=== PATIENT | female | born 1965 | race Caucasian/White ===

== ENCOUNTER 2018-08-17 06:51 | Emergency (ER) | payer BC ==
[2018-08-17 07:01] VITALS: RESP 16; O2SAT 97
--- NOTE | 2018-08-17 07:27 | C.PDOC ---
History Of Present Illness 53 y/o female who presents to the ED for medical evaluation of abdominal pain x 3 days with associated chills, nausea, vomiting x 1 (yesterday), poor appetite, rhinorrhea, and headache. She describes the pain as achy and limited to the right side. She denies any aggravating factors. She denies fever, dizziness, diarrhea, chest pain. She admits to sick contact at home (Son has flu). LMP was in December (menopausal) and last BM was on Friday. She denies any use of meds. <Ceci Naranjo - Last Filed: 08/17/18 15:24> <Maegan Griggs - Last Filed: 08/17/18 07:21> History Per: Patient History/Exam Limitations: no limitations Onset/Duration Of Symptoms: Days (3), Gradual Current Symptoms Are (Timing): Still Present Severity: Mild Pain Scale Rating Of: 3 <Ceci Naranjo - Last Filed: 08/17/18 15:24> Time Seen by Provider: 08/17/18 07:21 Chief Complaint (Nursing): Abdominal Pain Past Medical History Vital Signs: Last Vital Signs Temp 98.2 F 08/17/18 06:57 Pulse 93 H 08/17/18 06:57 Resp 16 08/17/18 06:57 BP 124/82 08/17/18 06:57 Pulse Ox 97 08/17/18 06:57 - Medical History PMH: Gastritis Family History: States: Unknown Family Hx - Social History Hx Alcohol Use: No Hx Substance Use: No - Immunization History Hx Tetanus Toxoid Vaccination: No Hx Influenza Vaccination: No Hx Pneumococcal Vaccination: No <Maegan Griggs - Last Filed: 08/17/18 07:21> Reviewed: Historical Data, Nursing Documentation, Vital Signs Vital Signs: Last Vital Signs Temp 98.2 F 08/17/18 06:57 Pulse 93 H 08/17/18 06:57 Resp 16 08/17/18 06:57 BP 124/82 08/17/18 06:57 Pulse Ox 97 08/17/18 07:27 - Social History Hx Tobacco Use: No <Ceci Naranjo - Last Filed: 08/17/18 15:24> Review Of Systems Constitutional: Positive for: Chills. Negative for: Fever, Sweats, Weakness ENT: Positive for: Nose Discharge (clear rhinorrhea). Negative for: Nose Congestion, Throat Pain Cardiovascular: Negative for: Chest Pain Respiratory: Negative for: Cough Gastrointestinal: Positive for: Nausea, Vomiting, Abdominal Pain. Negative for: Diarrhea, Constipation Musculoskeletal: Negative for: Neck Pain Skin: Negative for: Rash Neurological: Positive for: Headache. Negative for: Dizziness <Ceci Naranjo - Last Filed: 08/17/18 15:24> Physical Exam - Physical Exam Appears: Well, Non-toxic, No Acute Distress Skin: Normal Color, Warm, Dry Head: Atraumatic, Normacephalic, No Tenderness Eye(s): bilateral: Normal Inspection, PERRL Ear(s): Bilateral: Normal (TM intact) Nose: Flaring, No Discharge Throat: No Erythema Neck: Normal ROM, Supple Lymphatic: No Adenopathy Chest: Symmetrical Cardiovascular: Rhythm Regular Respiratory: Normal Breath Sounds, No Wheezing Gastrointestinal/Abdominal: Bowel Sounds, Soft, Tenderness (mild; RLQ), No Guarding, No Rebound Back: No CVA Tenderness Neurological/Psych: Oriented x3, Normal Speech, Normal Cognition, Normal Sensa tion <Ceci Naranjo - Last Filed: 08/17/18 15:24> ED Course And Treatment O2 Sat by Pulse Oximetry: 97 <Maegan Griggs - Last Filed: 08/17/18 07:21> - Laboratory Results Result Diagrams: 08/17/18 07:57 08/17/18 07:57 - Other Rad abdominal U/S X-Ray: Viewed By Me, Read By Radiologist Interpretation: Accession No. : [id number]. Patient Name / ID : PUJA ANDERS / [id number]. Exam Date : 08/17/2018 12:21:06 ( Approved ). Study Comment : Sex / Age : F / 53Y. Creator : Celena Mead. Dictator : Latrice Long MD. Oncology Patient Navigator : Dancing Master : Latrice Long MD. Approver2 : Report Date : 08/17/2018 12:40:48. My Comment : . HISTORY: RLQ pain r/o ovarian cyst vs appendicitis. COMPARISON: None available. TECHNIQUE: Sonographic evaluation of the abdomen. FINDINGS: LIVER: Measures 15.4 cm in sagittal dimension. Echogenic liver may be seen in setting of hepatic pa renchymal disease or fatty infiltration. No focal hepatic mass identified. The main portal vein appears patent with normal directional flow. No intrahepatic bile duct dilatation. GALLBLADDER: No gallstones. No gallbladder wall thickening. Negative sonographic Ayoub's sign as assessed by the steam distribution supervisor. COMMON BILE DUCT: Measures 3 mm. PANCREAS: Not well visualized. RIGHT KIDNEY: Measures 10.7 x 5.3 x 4.1 cm. No obstructing calculus or hydronephrosis identified. LEFT KIDNEY: Measures 11.2 x 4.9 x 4.9 cm. No obstructing calculus or hydronephrosis identified. SPLEEN: Measures approximately 10.2 cm. AORTA: Limited views appear unremarkable. IVC: Limited views appear unremarkable. OTHER FINDINGS: None. IMPRESSION: Echogenic liver may be seen in setting of hepatic parenchymal disease or fatty infiltration. pelvic U/S X-Ray: Viewed By Me, Read By Radiologist Interpretation: Accession No. : [id number]. Patient Name / ID : PUJA ANDERS / [id number]. Exam Date : 08/17/2018 12:32:14 ( Approved ). Study Comment : Sex / Age : F / 53Y. Creator : Celena Mead. Dictator : Geoff Quiroz MD. Oncology Patient Navigator : Dancing Master : Geoff Quiroz MD. Approver2 : Report Date : 08/17/2018 13:45:21. My Comment : . Date of service: 08/17/2018. HISTORY: RLQ pain ? ovarian cyst. COMPARISON: None available. TECHNIQUE: Transabdominal and transvaginal. FINDINGS: UTERUS: Measures 8.4 x 4.6 x 5.7 cm. Normal in size and appearance. No fibroid or other mass lesion seen. ENDOMETRIUM: Measures 5 mm in diameter. Unremarkable. CERVIX: No cervical abnormality identified. RIGHT OVARY: Measures 3.6 x 2.1 x 3.3 cm. No solid mass. Normal flow. Two simple cysts, 2.1 x 1.8 x 2.0 cm and 2.6 x 2.1 x 2.1 cm. The patient is likely perimenopausal and these are likely physiologic cysts.. LEFT OVARY: Measures 2.2 x 1.7 x 1.9 cm. No solid mass. Normal flow. FREE FLUID: No significant free fluid noted. OTHER FINDINGS: None. IMPRESSION: Two simple right ovarian cysts. Otherwise unremarkable examination. <Ceci Naranjo - Last Filed: 08/17/18 15:24> Medical Decision Making Medical Decision Making: A/P: Ovarian cysts (Right) - Meds given- Tylenol, Motrin, Pepcid, and Zofran (tolerated well; symptoms improved - Negative for flu - Repeat UA -negative - Labs reviewed and Discussed with Patient - follow up with PCP, Dr. Love, and local OBGYN - Motrin 600mg prn pain - Patient verbalized understanding <Ceci Naranjo - Last Filed: 08/17/18 15:24> Disposition <Maegan Griggs - Last Filed: 08/17/18 07:21> Counseled Patient/Family Regarding: Studies Performed, Diagnosis, Need For Followup - Disposition Disposition Time: 14:57 <Ceci Naranjo - Last Filed: 08/17/18 15:24> - Disposition Referrals: Osman Love DO [Staff Provider] - Disposition: HOME/ ROUTINE Condition: IMPROVED Additional Instructions: MARTITA LUO, thank you for letting us take care of you today. Your provider was Maegan Griggs MD/Ceci Naranjo PA-C and you were treated for ABD PAIN/DIZZINESS. The emergency medical care you received today was directed at your acute symptoms. If you were prescribed any medication, please fill it and take as directed. It may take several days for your symptoms to resolve. Return to the Emergency Department if your symptoms worsen, do not improve, or if you have any other problems. Please contact your doctor or call one of the physicians/clinics you have been referred to that are listed on the Patient Visit Information form that is included in your discharge packet. Bring any paperwork you were given at discharge with you along with any medications you are taking to your follow up visit. Our treatment cannot replace ongoing medical care by a primary care provider outside of the emergency department. Thank you for allowing the [facility] team to be part of your care today. Prescriptions: Ibuprofen [Motrin] 600 mg PO TID PRN #30 tab PRN Reason: Pain, Moderate (4-7) Instructions: Ovarian Cyst (DC) Forms: [email or web address] (Armenian), Work Excuse - Clinical Impression Clinical Impression: Ovarian cyst - PA / PATTERN STORAGE CLERK / Resident Statement MD/DO has reviewed & agrees with the documentation as recorded. <Ceci Naranjo - Last Filed: 08/17/18 15:24>
[2018-08-17] MEDS ORDERED: Sodium Chloride 0.9% 500 ML IV ONE (07:44)
[2018-08-17 08:08] LABS: BASO % 0.7 % (0.0-2.0); EOS % 0.3 % (0.0-4.0); HEMOGLOBIN 15.7 g/dL (11.0-16.0); LYMPH # 1.6 K/uL (1.0-4.3); LYMPH % 33.3 % (20.0-40.0); MEAN CELL VOLUME 90.5 fL (81.0-99.0); MEAN CORPUSCULAR HEMOGLOBIN 29.7 pg (27.0-31.0); MEAN CORPUSCULAR HGB CONC 32.8 g/dL (33.0-37.0); MEAN PLATELET VOLUME 11.8 fL (7.2-11.7); MONO # 0.7 K/uL (0.0-0.8); NEUT # 2.4 K/uL (1.8-7.0); NEUT % 50.7 % (50.0-75.0); NRBC % 0.1 % (0.0-2.0); RBC 5.29 Mil/uL (3.80-5.20); RED CELL DISTRIBUTION WIDTH 13.9 % (11.5-14.5); WHITE BLOOD COUNT 4.7 K/uL (4.8-10.8)
[2018-08-17 08:22] LABS: ALB/GLOB RATIO 1.3 (1.0-2.1); ALBUMIN 4.9 g/dL (3.5-5.0); ALT/SGPT 40 U/L (9-52); AST/SGOT 48 U/L (14-36); BLOOD UREA NITROGEN 14 mg/dL (7-17); CALCIUM 9.5 mg/dl (8.6-10.4); GFR NON-AFRICAN AMERICAN > 60; LIPASE 106 U/L (23-300)
[2018-08-17] MEDS ORDERED: Sodium Chloride 0.9% 1,000 ML ONE (08:31)
[2018-08-17 08:55] LABS: SQUAMOUS EPITHIAL 19 /hpf (0-5); URINE AMORPHOUS SEDIMENT RARE /ul (<OCC); URINE BACTERIA MANY (<OCC); URINE BILIRUBIN NEGATIVE (NEGATIVE); URINE BLOOD 1+ (NEGATIVE); URINE CLARITY Hazy (Clear); URINE COLOR Amber (YELLOW); URINE GLUCOSE (UA) NORMAL (Normal); URINE LEUKOCYTE ESTERASE 2+ Leu/uL (Negative); URINE PROTEIN 1+ mg/dL (NEGATIVE)
[2018-08-17 10:06] LABS: SQUAMOUS EPITHIAL 1 /hpf (0-5); URINE BACTERIA RARE (<OCC); URINE BILIRUBIN NEGATIVE (NEGATIVE); URINE BLOOD 1+ (NEGATIVE); URINE CLARITY Clear (Clear); URINE COLOR Yellow (YELLOW); URINE GLUCOSE (UA) NORMAL (Normal); URINE LEUKOCYTE ESTERASE TRACE Leu/uL (Negative); URINE PROTEIN NEGATIVE (NEGATIVE); URINE UROBILINOGEN NORMAL mg/dL (0.2-1.0)
--- NOTE | 2018-08-17 12:49 | US ---
HISTORY: RLQ pain r/o ovarian cyst vs appendicitis COMPARISON: None available. TECHNIQUE: Sonographic evaluation of the abdomen. FINDINGS: LIVER: Measures 15.4 cm in sagittal dimension. Echogenic liver may be seen in setting of hepatic parenchymal disease or fatty infiltration. No focal hepatic mass identified. The main portal vein appears patent with normal directional flow. No intrahepatic bile duct dilatation. GALLBLADDER: No gallstones. No gallbladder wall thickening. Negative sonographic Ayoub's sign as assessed by the card tape converter operator. COMMON BILE DUCT: Measures 3 mm. PANCREAS: Not well visualized. RIGHT KIDNEY: Measures 10.7 x 5.3 x 4.1 cm. No obstructing calculus or hydronephrosis identified. LEFT KIDNEY: Measures 11.2 x 4.9 x 4.9 cm. No obstructing calculus or hydronephrosis identified. SPLEEN: Measures approximately 10.2 cm. AORTA: Limited views appear unremarkable. IVC: Limited views appear unremarkable. OTHER FINDINGS: None. IMPRESSION: Echogenic liver may be seen in setting of hepatic parenchymal disease or fatty infiltration.
--- NOTE | 2018-08-17 14:50 | US ---
Date of service: 08/17/2018 HISTORY: RLQ pain ? ovarian cyst COMPARISON: None available. TECHNIQUE: Transabdominal and transvaginal FINDINGS: UTERUS: Measures 8.4 x 4.6 x 5.7 cm. Normal in size and appearance. No fibroid or other mass lesion seen. ENDOMETRIUM: Measures 5 mm in diameter. Unremarkable. CERVIX: No cervical abnormality identified. RIGHT OVARY: Measures 3.6 x 2.1 x 3.3 cm. No solid mass. Normal flow. Two simple cysts, 2.1 x 1.8 x 2.0 cm and 2.6 x 2.1 x 2.1 cm. The patient is likely perimenopausal and these are likely physiologic cysts.. LEFT OVARY: Measures 2.2 x 1.7 x 1.9 cm. No solid mass. Normal flow. FREE FLUID: No significant free fluid noted. OTHER FINDINGS: None. IMPRESSION: Two simple right ovarian cysts. Otherwise unremarkable examination.
[2018-08-17 15:10] VITALS: BP 106/69; PULSE 76; TEMP 98.5
== END 2018-08-17 15:19 | disposition home or self-care (01) ==
LOC: C.ER 06:51
DX: N83.291 Other ovarian cyst, right side (principal)
CPT/HCPCS: 76700; 76830; 76856; 80053; 81001; 83690; 84702; 85025; 87804; 96361; 96374; 96375; 99285; J2405; J7040